=== PATIENT | male | born 1985 | race Caucasian/White ===

== ENCOUNTER 2020-09-03 08:40 | Emergency (ER) | payer BC ==
[2020-09-03 08:46] VITALS: TEMP 98.4; BMI 24.3
[2020-09-03] MEDS ORDERED: MECLIZINE HCL 25 MG TABLET (FP) PO ONE (08:59)
--- NOTE | 2020-09-03 08:59 | PDOC ---
History of Present Illness - General Chief Complaint: Lightheaded Stated Complaint: DIZZY Time Seen by Provider: 09/03/20 08:53 History Source: Patient - History of Present Illness Timing/Duration: other Past History - Medical History Allergies/Adverse Reactions: Allergies Allergy/AdvReac Type Severity Reaction Status Date / Time No Known Allergies Allergy Verified 09/03/20 08:41 Home Medications: Ambulatory Orders Meclizine HCl [Antivert -] 25 mg PO QID #28 tablet 09/03/20 COPD: No - Surgical History Appendectomy: Yes - Immunization History Immunization Up to Date: Yes - Psycho-Social/Smoking History Smoking History: Never smoked - Substance Abuse Hx (Audit-C & DAST Scrn) How often the patient has a drink containing alcohol: Never Score: In Men: 4 or > Positive; In Women: 3 or > Positive: 0 Screen Result (Pos requires Nsg. Audit-10AR): Negative In the last yr the pt used illegal drug/Rx for NonMed reason: No Score: Yes response is considered Positive: 0 Screen Result (Positive result requires Nsg. DAST-10): Negative Review of Systems - Review of Systems Constitutional: No: Chills, Fever Respiratory: No: Shortness of Breath Cardiac (ROS): No: Chest Pain Neurological: Yes: Dizziness. No: Headache, Numbness, Tingling, Weakness *Physical Exam - Vital Signs Last Vital Signs Temp Pulse Resp BP Pulse Ox 98.4 F 75 20 118/72 98 09/03/20 08:41 09/03/20 08:41 09/03/20 08:41 09/03/20 08:41 09/03/20 08:41 - Physical Exam General Appearance: Yes: Appropriately Dressed. No: Apparent Distress HEENT: positive: Normal Voice Neck: positive: Supple Respiratory/Chest: negative: Respiratory Distress Integumentary: positive: Dry, Warm Neurologic: positive: director it project II-XII NML intact, Fully Oriented, Alert, Normal Mood/Affect, Motor Strength / ED Treatment Course - LABORATORY CBC & Chemistry Diagram: 09/03/20 09:36 09/03/20 09:19 Medical Decision Making - Medical Decision Making 09/03/20 08:59 35 yo M, no sig hx, here with dizziness. Patient states for the past 3 days, he has had on and off sensation of the room spinning, mostly brought on when standing up or walking around per patient. States he felt like passing out this a.m. No headache, focal weakness, nausea, vomiting, chest pain or shortness of breath. No recent head injury. No recent URI. No history of same see exam Vertigo M/l benign No recent uri/head trauma Neuro intact -basic labs -meclizine -reassess 09/03/20 10:19 Patient's EKG and labs are all unremarkable. Patient reports that dizziness since resolved with meclizine. Dc with small dose and for patient to follow-up with PMD if symptoms recur Discharge - Discharge Information Problems reviewed: Yes Clinical Impression/Diagnosis: Vertigo Condition: Improved Disposition: HOME - Additional Discharge Information Prescriptions: Meclizine HCl [Antivert -] 25 mg PO QID #28 tablet - Follow up/Referral - Patient Discharge Instructions Patient Printed Discharge Instructions: Vertigo Additional Instructions: Take medication as directed and if symptoms recur, please follow-up with your PMD - Post Discharge Activity Work/Back to School Note: Back to Work
[2020-09-03] MEDS ORDERED: MECLIZINE HCL 25 MG TABLET (FP) ONE (09:21)
[2020-09-03 09:47] LABS: BASO % 0.8 % (0-2.0); EOS % 1.6 % (0-4.5); HEMATOCRIT 47.2 % (35.4-49); HEMOGLOBIN 16.1 GM/dL (11.7-16.9); LYMPH % 34.4 % (8-40); MCH 32.3 pg (25.7-33.7); MCHC 34.2 g/dl (32.0-35.9); MEAN CELL VOLUME 94.4 fl (80-96); MEAN PLT VOLUME 7.8 fl (7.5-11.1); MONO % 8.8 % (3.8-10.2); NEUT % 54.4 % (42.8-82.8); PLATELET COUNT 259 K/MM3 (134-434); RDW 13.5 % (11.9-15.9); WHITE BLOOD COUNT 5.2 K/mm3 (4.0-10.0)
[2020-09-03 10:12] LABS: BILIRUBIN,TOTAL 0.8 mg/dL (0.2-1); BLOOD UREA NITROGEN 14.1 mg/dL (7-18); CALCIUM 9.5 mg/dL (8.5-10.1); CREATININE 1.1 mg/dL (0.55-1.3); POTASSIUM 4.4 mmol/L (3.5-5.1); TOT PROT 7.6 g/dl (6.4-8.2)
[2020-09-03 10:16] VITALS: BP 108/71; PULSE 55
--- NOTE | 2020-09-03 15:10 | EKG ---
Test Reason : Blood Pressure : / mmHG Vent. Rate : 053 BPM Atrial Rate : 053 BPM P-R Int : 150 ms QRS Dur : 088 ms QT Int : 410 ms P-R-T Axes : 063 012 030 degrees QTc Int : 384 ms SINUS BRADYCARDIA OTHERWISE NORMAL ECG NO PREVIOUS ECGS AVAILABLE Confirmed by MD JOHN, SAMMY ([id number]) on 09/03/2020 3:09:29 PM Referred By: Confirmed By:SAMMY LOPEZ MD
== END 2020-09-03 11:15 | disposition home or self-care (01) ==
LOC: JER 08:40
DX: H81.4 Vertigo of central origin (principal)
CPT/HCPCS: 36415; 80053; 85025; 93005; 93010; 99284-25